=== PATIENT | female | born 1950 | race Caucasian/White ===

== ENCOUNTER 2016-11-20 07:54 | Day surgery (SDC) | payer MEDICARE ==
[~2016-11-20] VITALS: Ht 175.3 cm; Wt 90.7 kg
[~2016-11-20 07:54] MED LIST: AUGMENTIN500TAB PO; BIOTIN5000 MCG PO; CALCIUM + D600 MG PO; CEPHALEXIN500 MG OR; MUCUS RELIEF400 MG PO; MULTI VIT PO
[2016-11-20 10:30] VITALS: BP 125/64
== END 2016-11-20 10:54 | disposition home or self-care (01) ==
LOC: ENDO 07:54
PROVIDERS: ATTEND Surgery
PROC: 0DBL8ZX Excision of Transverse Colon, Via Natural or Artificial Opening Endoscopic, Diagnostic (ICD-10-PCS; principal; 2016-11-20)
DX: Z12.11 Encounter for screening for malignant neoplasm of colon (principal); K63.5 Polyp of colon; K64.4 Residual hemorrhoidal skin tags; K57.30 Diverticulosis of large intestine without perforation or abscess without bleeding